=== PATIENT | male | born 1955 | race African-American/Black ===

== ENCOUNTER 2018-11-30 11:41 | Inpatient (IN) ==
[2018-11-30] MEDS ORDERED: SODIUM CHLORIDE 0.9% INJ PRN (12:50)
[2018-11-30] MEDS ORDERED: PHENERGAN IV PRN (12:50)
[2018-11-30] MEDS ORDERED: ZOFRAN IV PRN (12:50)
[2018-11-30] MEDS: DILAUDID IV PRN ×2 (13:56→18:35)
[2018-11-30 15:24] LABS: BASO# 0.02 X1000 (0.0-0.2); BASO% 0.6 % (0.0-0.8); EOS# 0.01 X1000 (0.0-0.7); EOS% 0.3 % (0.0-10.0); HEMATOCRIT 31.1 % (42.0-52.0); HEMOGLOBIN 9.3 g/dL (14.0-18.0); LYMPH# 0.82 X1000 (1.2-3.4); LYMPH% 26.3 % (20.5-51.1); MCH 29.6 PG (27-31); MCHC 29.9 g/dL (33-37); MONO# 0.19 X1000 (0.11-0.59); MONO% 6.1 % (1.7-9.3); MPV 11.8 FL (7.4-10.4); NEUT# 2.08 X1000 (1.4-6.5); NEUT% 66.7 % (42.2-75.2); PLT 125 X1000 (130-400); RBC 3.14 XMIL (4.7-6.1); RDW 21.3 % (11.5-14.5); WBC 3.12 X1000 (4.8-10.8)
[2018-11-30 15:40] LABS: AGAP 10; ALB/GLOB RATIO 0.7; ALBUMIN 2.8 g/dL (3.5-5.0); ALKALINE PHOSPHATASE 119 U/L (32-122); BUN 13 mg/dL (8-22); CALCIUM 8.3 mg/dL (8.8-10.2); CHLORIDE 103 mmol/L (98-107); COSMO 279; CREATININE 0.8 mg/dL (0.7-1.2); ESTIMATED GFR > 60; GLUCOSE 93 mg/dL (70-104); GOT 28 U/L (10-34); GPT 11 U/L (10-44); MAGNESIUM 1.7 mg/dL (1.5-2.7); POTASSIUM 3.8 mmol/L (3.5-5.1); SODIUM 140 mmol/L (136-145); TCO2 27 mmol/L (25-35); TOTAL BILIRUBIN 0.96 mg/dL (0.20-1.00)
[2018-11-30] MEDS: NS 1,000 ML IV SCH (15:45)
[2018-11-30 16:00] LABS: INR 1.18; PROTIME 15.1 Seconds (11.0-16.0)
--- NOTE | 2018-11-30 16:52 | Diag Imaging Result Doc PS360 ---
US ABDOMEN-COMPLETE - 11/30/2018 INDICATION: follow on abdominal cyst for possible drainage COMPARISON: CT from 09/20/2018 FINDINGS: There is a large heterogeneous mass occupying the liver. This is mostly solid, with some cystic components. The cystic component is largely complicated. This cystic area measures approximately 15 x 16 cm. Overall the mass measures 26 x 26 x 20 cm. The right kidney is obscured. The left kidney is normal. The spleen is normal measuring about 8 cm. The gallbladder, pancreas, common bile duct, main portal vein, aorta and IVC are obscured. IMPRESSION: Large hepatic mass with complicated fluid internally. There is no reason to suspect that drainage of the fluid portion will accomplish anything in terms of overall size of the mass. Electronically signed by Christiano Abdi 11/30/2018 4:49 PM
--- NOTE | 2018-11-30 17:32 | HISTORY AND PHYSICAL ---
ONCOLOGIST: Dr. Li. CHIEF COMPLAINT: Intractable nausea, vomiting, and pain. HISTORY OF PRESENT ILLNESS: Mr. 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 He finished his radiation with Dr. Mcdowell 3 weeks ago. He still remains with a large tumor. He does get therapeutic either ultrasound-guided paracentesis or abdominal cyst drainage. He reported to Dr. Li's office for intractable pain, nausea, and vomiting. He is unable to the eat or drink anything without vomitus. He was given IV Phenergan in their office and was sent to be a direct admission. Really no other past medical history aside from nicotine use and hemorrhoids. Currently awaiting diagnostic and laboratory data. We will continue with the pain regimen and antiemetics. PAST MEDICAL HISTORY: 1. Hemorrhoids. 2. GIST status post radiation that he completed 3 weeks ago and p.o. chemotherapy with Sutent, as well as therapeutic drainage. PAST SURGICAL HISTORY: Hemorrhoidectomy. ALLERGIES: No known drug allergies. HOME MEDICATIONS: Being compiled. REVIEW OF SYSTEMS: Patient complains of some abdominal as well as esophageal pain, nausea, vomiting. He has had chills, but unknown fever. No cardiac type chest pain. More uncomfortable breathing secondary to having abdominal fullness, but no shortness of breath per se. LABORATORY AND DIAGNOSTICS: Currently pending. PHYSICAL EXAMINATION: VITAL SIGNS: Temperature is 97.7 degrees, heart rate 95, respirations 16, blood pressure 102/67, O2 is 97% on room air. GENERAL: Mr. Torre is an ill-appearing, 63-year-old male who is lying on his left side, who appears to be in pain but in no acute distress. HEENT: Atraumatic, normocephalic. PERRL. NECK: Supple. Trachea midline. CV: S1, S2 appreciated. No murmurs, gallops, rubs noted. RESPIRATORY: Lung sounds clear bilaterally. Bilaterally decreased in the bases. GI: Distended, tender. Quiet bowel sounds. EXTREMITIES: Three to 4+ pitting edema. Could not assess pedal pulses secondary to the edema. This has had an increase over the last few months. NEUROLOGIC: No focal deficits noted. MUSCULOSKELETAL: Patient was lying in bed. However, he did reposition himself without any problems. ASSESSMENT AND PLAN: 1. Intractable nausea, vomiting, abdominal pain, unable to eat or drink without vomitus. We will continue with antiemetics, IV pain regimen. Will do lower rate IV fluids given that the patient is not able to eat or drink anything. 2. Gastrointestinal stromal tumor. He just finished chemotherapy [address] Mcdowell. He does still have a large tumor and is on p.o. Sutent with Dr. Li. He was a direct admit from their office. He requests a complete ultrasound of the abdomen to see if we need to do a paracentesis or drain an abdominal cyst, so we will keep the patient n.p.o. for now. May have occasional ice chips or mouth swabs. 3. Hemorrhoids. 4. Further recommendation to follow physician evaluation, laboratory and diagnostic data. Dictated by ROWAN Salguero for Abran Baumann MD cc: MD Christian Adler MD [facility]
[2018-11-30] MEDS: DILAUDID IV SCH (22:13)
--- NOTE | 2018-11-30 22:29 | HISTORY AND PHYSICAL ---
ADDENDUM: The patient seen and examined by me [id number]. All the laboratory, vital signs and images were reviewed. The patient basically is a direct admission from Dr. Li due to nausea, vomiting and abdominal pain. He does have a gastrointestinal stromal tumor. He has been on chemotherapy and I believe radiotherapy as well. He has been placed on fluids, pain medication and nausea medication. He seems to be feeling a little bit better, so I will continue with same management. Abdominal ultrasound showed a large hepatic mass with complicated fluid internally, and it looks like he has been draining this hepatic mass/cyst before at [facility]. Probably, we will do it also during this hospitalization. I will wait for more recommendations of Hematology Oncology Department/Dr. Li. cc: Abran Baumann MD
[2018-12-01] MEDS: DILAUDID IV SCH ×4 (00:15→09:22)
[2018-12-01] MEDS: NS 1,000 ML IV SCH (01:50)
[2018-12-01 05:48] LABS: BASO# 0.02 X1000 (0.0-0.2); BASO% 0.7 % (0.0-0.8); EOS# 0.01 X1000 (0.0-0.7); EOS% 0.3 % (0.0-10.0); HEMATOCRIT 30.4 % (42.0-52.0); LYMPH# 0.63 X1000 (1.2-3.4); MCH 29.7 PG (27-31); MCHC 29.6 g/dL (33-37); MCV 100.3 FL (81-99); MONO# 0.15 X1000 (0.11-0.59); MONO% 5.2 % (1.7-9.3); MPV 12.5 FL (7.4-10.4); NEUT# 2.06 X1000 (1.4-6.5); NEUT% 71.8 % (42.2-75.2); PLT 132 X1000 (130-400); RBC 3.03 XMIL (4.7-6.1); RDW 21.3 % (11.5-14.5); WBC 2.87 X1000 (4.8-10.8)
[2018-12-01 05:53] LABS: AGAP 10; ALB/GLOB RATIO 0.6; ALBUMIN 2.7 g/dL (3.5-5.0); ALKALINE PHOSPHATASE 116 U/L (32-122); BUN 14 mg/dL (8-22); CALCIUM 8.8 mg/dL (8.8-10.2); CHLORIDE 104 mmol/L (98-107); COSMO 282; ESTIMATED GFR > 60; GLUCOSE 77 mg/dL (70-104); GOT 27 U/L (10-34); GPT 11 U/L (10-44); MAGNESIUM 1.9 mg/dL (1.5-2.7); POTASSIUM 4.1 mmol/L (3.5-5.1); SODIUM 142 mmol/L (136-145); TCO2 28 mmol/L (25-35); TOTAL BILIRUBIN 1.03 mg/dL (0.20-1.00); TOTAL PROTEIN 7.3 g/dL (6.3-8.3)
--- NOTE | 2018-12-01 11:26 | Diag Imaging Result Doc PS360 ---
EXAM: US ABD PARACENTESIS W S/I 12/01/2018 HISTORY: Mass/cyst aspiration under US TECHNIQUE: Ultrasound-guided cyst aspiration and drainage COMMENT: The risks and benefits of the procedure including the possibility of bleeding, infection, reaction to lidocaine were discussed with patient and he agreed to the procedure. Following sterile preparation the skin anteriorly and administration 1% lidocaine to the skin and deeper soft tissues, a 10.2-Spanish pigtail catheter was inserted into the multilocular cystic lesion in the mid anterior abdomen, and subsequently 3.7 L of grossly sanguinous serous fluid was drained. There are no immediate complications. IMPRESSION: Successful cyst drainage. Electronically signed by Da Castro 12/01/2018 11:23 AM
--- NOTE | 2018-12-01 12:47 | PROGRESS NOTE ---
DATE: 12/01/2018 SUBJECTIVE: This patient's pain seems to be better. He has been n.p.o. because he just had a procedure done, an ultrasound-guided cyst aspiration with drainage, and 3.7 L of grossly serosanguineous fluid was drained with no immediate complications. He has been evaluated by Hematology/Oncology Department. He has been placed on a diet. OBJECTIVE: Vital Signs: Temperature 98.3 degrees, pulse 102 respiratory rate 12, blood pressure 118/93, oxygen saturation 98 on room air. HEENT: Head normocephalic, no trauma. PERRLA. Neck: Supple. No JVD. No masses. Central trachea. Chest: Clear to auscultation. Some crepitus at the bases. Abdomen: Soft. Tenderness to palpation at the level of the superior part of the abdomen, mostly right upper quadrant. It looks like he has a protuberant abdomen, but mostly the lower part, without signs of ascites. It is really hard to palpation and painful. Extremities: No edema, no clubbing, no cyanosis. Decreased muscle mass. Neurological examination: The patient is alert, he is oriented. No deficits. LABORATORY: WBC 2.8, hemoglobin 9, hematocrit 30.4, platelets 132. Sodium 142, potassium 4.1, chloride 104, bicarbonate 28. BUN 14, creatinine 1, glucose 77, calcium 8.8, magnesium 1.9, albumin 2.7. ASSESSMENT AND PLAN: 1. Intractable nausea, vomiting, and abdominal pain. This seems to be getting better. Continue with pain medication through his intravenous line. Hopefully, we are going to start putting him on long-acting pain medication through his mouth and also as needed. Hematology/Oncology Department on board. He has been placed on a diet. 2. Gastrointestinal stromal tumor. Aware. Continue with the same management. Hematology/Oncology Department and Radiology Department on board. 3. Liver mass/cyst, status post drainage, 3.7 liters of serosanguineous fluid has been collected. No immediate complications. 4. Hemorrhoids. Aware. cc: Abran Baumann MD
[2018-12-01] MEDS ORDERED: NORCO-10 PO PRN (13:26)
[2018-12-01] MEDS ORDERED: DILAUDID IV PRN (13:27)
[2018-12-01] MEDS ORDERED: DURAGESIC 50 MICROGM/HR PATCH TD SCH (13:30)
[2018-12-01 16:40] VITALS: BP 92/77
--- NOTE | 2018-12-01 20:25 | DISCHARGE SUMMARY ---
ADMISSION DATE: 11/30/2018 DISCHARGE DATE: 12/01/2018 DISCHARGE DIAGNOSES: 1. Intractable nausea, vomiting, and abdominal pain. 2. Gastrointestinal stromal tumor. 3. Liver mass/cyst, status post drainage of 3.7 liters of serosanguineous fluid. 4. Hemorrhoids. PROCEDURES PERFORMED: 1. Abdominal ultrasound dated 11/30/2018, impression - large hepatic mass with complicated fluid internally. 2. Ultrasound guided cyst aspiration and drainage dated 12/01/2018. Impression - successful cyst drainage of 3.7 liters of grossly serosanguineous fluid. HOSPITAL COURSE: A 63-year-old male with a past medical history of gastrointestinal stromal tumor, using oral chemotherapy with Sutent, and apparently he finished his radiation with Dr. Mcdowell three weeks ago. He still remains with a large tumor. He does get therapeutic ultrasound guided abdominal cyst drainage at [facility]. He reported to Dr. Li's office for intractable pain, nausea, and vomiting. He was unable to drink or eat anything without having nausea or vomiting. He was given IV Phenergan in their office and was sent to be a direct admission. Other medical history is nicotine use and hemorrhoids. An ultrasound guided cyst aspiration and drainage was done on 12/01/2018 and 3.7 liters of grossly serosanguineous fluid was removed. This patient was getting better and he was able to tolerate p.o. and the pain was controlled. He was evaluated by Hematology/Oncology Department and it was decided to send this patient home, given his current condition. On the morning of discharge, this patient was in stable medical condition, tolerating p.o. and ambulating. He was complaining of mild pain. LABORATORY DATA: Showed a WBC of 3.1, hemoglobin 9.3, platelet count 125,000. CMP was grossly unremarkable. WBC 2.9, hemoglobin 9, hematocrit 30.5, platelet count 132,000. Sodium 142, potassium 4.1, chloride 104, bicarbonate 28, BUN 14, creatinine 1, glucose 77, calcium 8.8, AST 27, ALT 11, alkaline phosphate 116. PHYSICAL EXAMINATION: Vital Signs: Temperature 97.6, pulse 103, respiratory rate 13, blood pressure 118/91, oxygen saturation 99 on room air. HEENT: Head normocephalic. No trauma. PERRLA. Neck: Supple. No JVD. No masses. Central trachea. Chest: Clear to auscultation. Some crepitus at the bases. Abdomen: Soft. Tenderness to palpation at the level of the superior part of the abdomen, protuberant and painful to palpation. Extremities: Edema. No clubbing or cyanosis. Decreased muscle mass. Neurological: The patient is alert. He is oriented. No deficits. DISCHARGE MEDICATIONS: 1. Fentanyl patch 50 mcg q three days. 2. Hydrocodone/acetaminophen 10/325 mg q four to six hours as needed. 3. Sunitinib malate one tablet p.o. daily, 50 mg capsule. FOLLOWUP: Follow up with Dr. Li in one week. cc: Abran Baumann MD
== END 2018-12-01 17:07 | disposition home health service (06) | DRG 442 ==
LOC: DIRADM 11:41 → SUATTDRO 11:41 → 1N 13:04
PROVIDERS: ADMIT Internal Medicine; ATTEND Internal Medicine

== ENCOUNTER 2018-12-15 15:01 | Inpatient (IN) ==
[2018-12-15] MEDS ORDERED: ZOFRAN IV PRN (16:45)
[2018-12-15 17:34] LABS: EOS# 0.01 X1000 (0.0-0.7); EOS% 0.2 % (0.0-10.0); HEMATOCRIT 20.2 % (42.0-52.0); IMM GRAN# 0.02 X1000 (0.0-0.04); IMM GRAN% 0.5 % (0.0-0.5); LYMPH# 0.62 X1000 (1.2-3.4); LYMPH% 14.5 % (20.5-51.1); MCH 30.9 PG (27-31); MCHC 29.7 g/dL (33-37); MCV 104.1 FL (81-99); MONO% 4.7 % (1.7-9.3); MPV 11.9 FL (7.4-10.4); NEUT# 3.44 X1000 (1.4-6.5); NEUT% 80.1 % (42.2-75.2); PLT 116 X1000 (130-400); RBC 1.94 XMIL (4.7-6.1); RDW 21.3 % (11.5-14.5); WBC 4.29 X1000 (4.8-10.8)
[2018-12-15 17:55] LABS: AGAP 11; ALB/GLOB RATIO 0.5; ALKALINE PHOSPHATASE 134 U/L (32-122); BUN 16 mg/dL (8-22); CALCIUM 7.9 mg/dL (8.8-10.2); CHLORIDE 101 mmol/L (98-107); COSMO 276; CREATININE 0.6 mg/dL (0.7-1.2); ESTIMATED GFR > 60; GLUCOSE 78 mg/dL (70-104); GOT 32 U/L (10-34); GPT 18 U/L (10-44); MAGNESIUM 1.6 mg/dL (1.5-2.7); POTASSIUM 4.1 mmol/L (3.5-5.1); SODIUM 138 mmol/L (136-145); TCO2 26 mmol/L (25-35); TOTAL BILIRUBIN 0.71 mg/dL (0.20-1.00); TOTAL PROTEIN 5.8 g/dL (6.3-8.3)
[2018-12-15] MEDS ORDERED: NS 250 ML ONE (18:02)
[2018-12-15 18:06] LABS: BANDS 11 % (0-1); LARGE PLATELETS OCCASIONAL; LYMPHS 13 % (21-51); MONO 2 % (1-9); NRBC 3 % (0-0); SEGS 74 % (42-75)
[2018-12-15 18:07] LABS: ANISOCYTOSIS 2+
[2018-12-15 18:43] LABS: INR 1.16
[2018-12-15] MEDS: DILAUDID IV PRN ×2 (18:43→22:14)
--- NOTE | 2018-12-15 19:56 | HISTORY AND PHYSICAL ---
ADDENDUM: Patient seen and examined by me [id number]. All the laboratory and vital signs were reviewed. He had lab work today as an outpatient that showed a hemoglobin of 5.8. He has been complaining of abdominal pain because he has a history of gastrointestinal stromal tumor. He has been discharged on 12/01/2018 due to intractable nausea, vomiting, and also abdominal pain. He has a liver mass/cyst that was drained at that time, and 3.7 L of serosanguineous fluid was removed. He also has a history of hemorrhoids. As per the patient, he has not been seeing any active rectal bleeding. He sees a small bleed when he cleans himself after having a bowel movement. He does not notice any blood in the toilet or mixed with stools. Also, he has been complaining of abdominal pain and we will treat that. He is not having nausea and vomiting at this moment. We are going to get a new lab work done today and we will monitor that. He will receive 2 units of PRBCs and Gastroenterology Department will be consulted as well as Hematology/Oncology Department. It looks like his gastrointestinal stromal tumor is advanced with liver metastasis. Will monitor. I agree with the rest of the nurse practitioner's assessment and plan. cc: Abran Baumann MD
[2018-12-15] MEDS: NORCO-7.5 PO PRN (21:02)
--- NOTE | 2018-12-15 21:21 | HISTORY AND PHYSICAL ---
PRIMARY CARE PROVIDER: Dr. Holly. CHIEF COMPLAINT: Direct admission for intractable pain. HISTORY OF PRESENT ILLNESS: Mr. Torre is a 63-year-old male who carries a past medical history of a gastrointestinal stromal tumor. Was using oral chemotherapy with Sutent and had finished radiation with Dr. Mcdowell several weeks ago. Most recently admitted to our service on 11/30/2018, and underwent an ultrasound-guided cyst aspiration and drainage on 12/01/2018, where they were able to drain 3.7 L of grossly serosanguineous fluid. He presented back to Dr. Li's office today without having an appointment, complaining of intractable pain as well as some rectal bleeding. They checked his hemoglobin and hematocrit and they were 5 and 19. He was given IV Dilaudid in the office after talking with Lupe Rodney, Dr. Li's [employer] UNIT OPERATOR. He is probably in the end stages of his disease. Will admit him, start him on IV and p.o. pain medication, as well as transfuse him with 2 units of blood and consult GI. Could possibly be pressure on his hemorrhoids. He denies any bloody BMs. However, he does state that when he wipes, he will have blood related to his hemorrhoids, especially after he sat to have a BM for quite some time, so we will also initiate him on MiraLAX b.i.d. if he can tolerate. PAST MEDICAL HISTORY: 1. A gastrointestinal stromal tumor, status post chemotherapy and radiation, as well as therapeutic drainage of his cyst. 2. Hemorrhoids. PAST SURGICAL HISTORY: Hemorrhoidectomy. ALLERGIES: No known drug allergies. MEDICATIONS: Home medications are being compiled. REVIEW OF SYSTEMS: A 12 point review of systems is completely negative except for those mentioned in HPI. LABORATORY AND DIAGNOSTICS: Currently pending. PHYSICAL EXAMINATION: VITAL SIGNS: Pending. GENERAL: Mr. Torre is an ill-appearing, 63-year-old male who appears weak, but in no acute distress. HEENT: Atraumatic, normocephalic. PERRL. NECK: Supple. Trachea midline. CARDIOVASCULAR: S1, S2 appreciated. No murmurs, gallops, rubs noted. RESPIRATORY: Lung sounds clear bilaterally, decreased in the bases. GI: Distended, mildly tender. Positive bowel sounds 4 quadrants. EXTREMITIES: 4+ pitting edema. Could not assess pedal pulses secondary to the edema. It tends to go up into the belly. NEUROLOGIC: No focal deficits noted. ASSESSMENT AND PLAN: 1. Intractable pain in the abdomen. We will continue with intravenous Dilaudid and oral [place]. 2. Rectal bleeding, possibly hemorrhoidal; however, he has had a bigger dip in his hemoglobin and hematocrit. He is 5 and 19. We will transfuse him with 2 units of packed red blood cells, consult GI, and start him on MiraLAX twice daily as tolerated. 3. Gastrointestinal stromal tumor, followed by Dr. Li. 4. Liver mass/cyst, status post drainage on 12/01/2018, where they removed 3.7 L of serosanguineous fluid. 5. Hemorrhoids, status post hemorrhoidectomy. The patient continues to have issues with his hemorrhoids. Again, we are going to get GI on board. 6. Further recommendations to follow physician evaluation, laboratory and diagnostic data. Dictated by ROWAN Salguero for Abran Baumann MD cc: MD Dr. Jen Adler Dr.
[2018-12-16] MEDS: DILAUDID IV PRN ×6 (04:45→22:06)
[2018-12-16 07:24] LABS: BASO# 0.01 X1000 (0.0-0.2); BASO% 0.2 % (0.0-0.8); HEMATOCRIT 25.8 % (42.0-52.0); HEMOGLOBIN 8.4 g/dL (14.0-18.0); IMM GRAN# 0.03 X1000 (0.0-0.04); IMM GRAN% 0.7 % (0.0-0.5); LYMPH# 0.66 X1000 (1.2-3.4); MCH 31.5 PG (27-31); MCHC 32.6 g/dL (33-37); MCV 96.6 FL (81-99); MONO# 0.32 X1000 (0.11-0.59); MONO% 7.3 % (1.7-9.3); NEUT# 3.39 X1000 (1.4-6.5); NEUT% 76.8 % (42.2-75.2); PLT 98 X1000 (130-400); RBC 2.67 XMIL (4.7-6.1); RDW 20.3 % (11.5-14.5); WBC 4.41 X1000 (4.8-10.8)
[2018-12-16 07:45] LABS: AGAP 11; ALB/GLOB RATIO 0.6; ALBUMIN 1.7 g/dL (3.5-5.0); ALKALINE PHOSPHATASE 117 U/L (32-122); BUN 15 mg/dL (8-22); CALCIUM 7.3 mg/dL (8.8-10.2); CHLORIDE 100 mmol/L (98-107); COSMO 268; CREATININE 0.5 mg/dL (0.7-1.2); ESTIMATED GFR > 60; GLUCOSE 71 mg/dL (70-104); GOT 25 U/L (10-34); GPT 15 U/L (10-44); POTASSIUM 4.2 mmol/L (3.5-5.1); SODIUM 134 mmol/L (136-145); TCO2 23 mmol/L (25-35); TOTAL BILIRUBIN 1.03 mg/dL (0.20-1.00); TOTAL PROTEIN 4.7 g/dL (6.3-8.3)
[2018-12-16 07:54] LABS: ANISOCYTOSIS 2+; BANDS 2 % (0-1); HYPOCHROM 1+; LYMPHS 7 % (21-51); MONO 6 % (1-9); NRBC 6 % (0-0); POLYCHROM 2+; SEGS 85 % (42-75)
[2018-12-16] MEDS ORDERED: DILAUDID IV ONE (09:40)
[2018-12-16 10:58] LABS: IRON SATURATION 56 %; TIBC 107 ug/dL; TOTAL IRON 60 ug/dL (53-167); UNBOUND IRON 47 ug/dL (112-346)
--- NOTE | 2018-12-16 11:21 | PROGRESS NOTE ---
DATE: 12/16/2018 SUBJECTIVE: At this moment, this patient is complaining of left upper quadrant pain, abdominal pain. He has been getting treatment for these. He received 2 units of PRBCs and the hemoglobin improved from 6 to 8.4. Gastroenterology Department, as well as Hematology/Oncology Department, has been consulted. Apparently this patient was scheduled to get a Port-A-Cath placed today, so Surgery Department has been consulted to see if there is a possibility of placing this during this hospitalization. OBJECTIVE: Vital Signs: Temperature 98.6 degrees, pulse 97, respiratory rate 16, blood pressure 115/80, oxygen saturation 98 on room air. HEENT: Head normocephalic, no trauma. PERRLA. Neck: Supple. No JVD. No masses. Central trachea. Chest: Clear to auscultation, decreased at the bases with some crepitus at the bases as well. Abdomen: Distended to palpation at the level of the left upper quadrant. No signs of peritoneal irritation. I cannot feel some masses. Extremities: 3+ lower extremity edema. No clubbing. No cyanosis up to the abdomen. Neurological examination: This patient is alert and oriented x3. No focal deficits. He is complaining of generalized pain. LABORATORY: WBC 4.4, hemoglobin 8.4, hematocrit 25.8, platelets 98. Sodium 134, potassium 4.2, chloride 100, bicarbonate 23. BUN 15, creatinine 0.5, glucose 71, calcium 7.3, albumin 1.7. ASSESSMENT AND PLAN: 1. Severe anemia, status post 2 packed red blood cells, hemoglobin improved from 6 to 8.4. For now, we will continue to monitor. This patient has been complaining of some rectal bleeding, but likely related to hemorrhoids. Gastroenterology Department has been consulted. 2. Intractable abdominal pain. At this moment he is in pain. He has been getting pain medication. Will continue with same management for now. 3. Gastrointestinal stromal tumor followed by Dr. iL, which has been consulted. 4. Liver mass/cyst, status post drainage on 12/01/2018 where 3.7 liters of fluid have been removed. 5. Hemorrhoids, status post hemorrhoidectomy. Patient is DNR, Advanced care planning with the patient 15 minutes cc: Abran Baumann MD [facility]ITAL[facility]
--- NOTE | 2018-12-16 11:52 | Diag Imaging Result Doc PS360 ---
US GB < RUQ (LIMITED) - 12/16/2018 INDICATION: Drainage of lg abdominal cyst TECHNIQUE: COMPARISON: 12/07/2018 FINDINGS: Repeat ultrasound of the large mass in the epigastrium was performed. This mass is mostly air-filled. There are only some trace tiny pockets of fluid. IMPRESSION: Large mass in the upper abdomen that is partially fluid-filled, but mostly air-filled. Electronically signed by Christiano Abdi 12/16/2018 11:50 AM
--- NOTE | 2018-12-16 13:58 | GENERAL SURGERY PROGRESS NOTE ---
DATE: 12/16/2018 SUBJECTIVE: The patient is known to me from previous GIST tumor. He had come to my office recently and we had scheduled him for insertion of a port catheter for palliative chemotherapy. He has been not responding as well to the Sutent. He had a blood transfusion a couple of weeks ago due to significant anemia. However, yesterday at Dr. Li's office, he again was found to be quite anemic and was admitted directly. The patient says he has dark bloody bowel movements frequently. OBJECTIVE: He is afebrile, pulse 97, respirations 16, blood pressure 115/80 this morning.General: Awake, alert, no acute distress. Gastrointestinal: Soft, nondistended. He is firm in the upper abdomen. No significant tenderness. Rectal Examination: He does have external and internal hemorrhoids but there is no active bleeding. LABORATORY: Hemoglobin 6, hematocrit 28 yesterday, hemoglobin 8.4, hematocrit 25.8 today. Electrolytes were reviewed and unremarkable. ASSESSMENT AND PLAN: A 63-year-old male with metastatic GIST of the stomach. He is having significant anemia. We will recheck his hemoglobin and hematocrit tomorrow. If stable, we will plan to proceed with placement of a port tomorrow. Dr. Aguilar has also been consulted. cc: Teofiol Jackson MD
[2018-12-16] MEDS: NORCO-7.5 PO PRN (14:53)
--- NOTE | 2018-12-16 19:31 | HEMO/ONC CONSULTATION ---
DATE: 12/15/2018 ADMITTING PHYSICIAN: Abran Baumann MD REQUESTING PHYSICIAN: Abran Baumann MD. We appreciate this consult. CHIEF COMPLAINT: Gastrointestinal stromal tumor. HISTORY OF PRESENT ILLNESS: Mr. Alan Torre is a 63-year-old, male well known to Dr. Li with a history of gastrointestinal stromal tumor with liver and lymph node involvement and large cystic mass as well as hepatic metastases that have increased in size recently. The patient has been on Sutent but has been unable to tolerate treatment. Additionally he was treated with radiation therapy by Dr. Mcdowell. He is undergoing routine drainage of cystic mass approximately every [address] Todd Coates of [facility]. The patient presented to [facility] with reports of uncontrolled pain, inability to keep anything down by mouth and significant swelling to the waist. The patient was evaluated. Hemoglobin was found to be 6.7. It was decided at that time that the patient would be admitted to [facility] hospitalist service for IV fluids and IV pain control as well as transfusion of packed red blood cells. PAST MEDICAL HISTORY: 1. Gastrointestinal stromal tumor. 2. Hemorrhoids. PAST SURGICAL HISTORY: Hemorrhoidectomy. SOCIAL HISTORY: The patient does not use tobacco, alcohol or illicit drugs. FAMILY HISTORY: Negative for hematologic or oncologic disease. MEDICATIONS ON ADMISSION: 1. Urea topical cream. 2. Fentanyl transdermal patch. 3. Lasix. 4. Kunkle. 5. Sutent. ALLERGIES: Phospha Neutral. REVIEW OF SYSTEMS: A 14-point review of systems was obtained and is negative except for mentioned in HPI. PHYSICAL EXAMINATION: General: Mr. Torre is a 63-year-old, male, lying supine in bed in no immediate distress. Vital Signs: Temperature 98.6, blood pressure 115/80, heart rate 97, respirations 16, O2 saturation is 100% on room air. HEENT: Normocephalic, atraumatic. Mucous membranes are pale and moist. Sclerae are anicteric. Extraocular movements intact. Neck: Supple. Lungs: Clear to auscultation bilaterally. Chest expansion is equal bilaterally. Cardiovascular: S1, S2 is heard. No murmurs, rubs or gallops. Abdomen: Distended with positive ascites. Lower extremities: Without clubbing or cyanosis. The patient continues to have 2+ bilateral lower extremity edema. Dermatologic: No rashes, bruises or lesions. Neurologic: The patient is awake, alert, oriented x3. Has no focal deficits. LABORATORY DATA: Hemoglobin is 8.4, hematocrit 25.8, white blood cell count 4.41, platelets 98,000, sodium 134, potassium 4.2, chloride 100, CO2 23, BUN 15, creatinine 0.5 and is glucose 71. O2 saturation is 56%, bilirubin 1.03, AST 25, ALT 15 and alkaline phosphatase is 117. ASSESSMENT AND PLAN: 1. Gastrointestinal stromal tumor with liver and lymph node involvement and large cystic mass as well as hepatic metastases that have recently increased in size. The patient was maintained on Sutent, which he was unable to keep down for several weeks. He completed radiation therapy with Dr. Mcdowell approximately 1 month prior. He undergoes repeated drainage of cystic mass at [facility] with Dr. Coates. Last drainage was 2 weeks ago. We will obtain an ultrasound with possible drainage of cystic mass at this time. 2. Intractable pain secondary to #1. The patient will continue IV Dilaudid and [place] as prescribed. 3. Rectal bleeding, questionably hemorrhoidal. GI will be consulted. 4. Anemia with a hemoglobin of 5.7. The patient is status post 2 units packed red blood cell transfusion. We will continue to monitor and transfuse as necessary. 5. We will follow along and make further recommendations pending outcomes. The above reflects the history, exam, assessment and plan of Dr. Borrero. Dictated by ROWAN Riley for Antoinette Borrero MD cc: ROWAN Riley MD I have seen and examined the patient and the above note reflects my history, physical exam, assessment and plan. Antoinette FRANKLIN
--- NOTE | 2018-12-16 20:17 | GASTROENTEROLOGY CONSULTATION ---
DATE: 12/16/2018 HISTORY OF PRESENT ILLNESS: Mr. 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 He is known to me from my office practice. The patient recently had an EGD which showed a rather large mass in the stomach involving almost the entire lumen of the stomach. He has been under treatment by Dr. Li for his GIST. Unfortunately, he has not done well. He was admitted to hospital with anemia. He tells me that he has had trouble eating. He has not been able to keep much down. He can only eat small quantity; however, he has been able to drink Ensure, but he has been having severe indigestion and reflux as well as burping foul-smelling air. He denies any dysphagia or odynophagia but denies any hematemesis. He has had multiple loose bowel movements and has had some dark stool. On exam, he was found to be severely anemic and he was sent to the hospital for further evaluation and treatment. PAST MEDICAL HISTORY: Positive significant for GIST tumor. Currently he is on chemotherapy and radiation therapy. History of hemorrhoid surgery and has had hemorrhoidectomy. MEDICATIONS: Prior to his hospitalization, he has been on Duragesic patch, furosemide, hydrocodone, omeprazole and Sunitinib Malate that is Sutent. ALLERGIES: Claims to be allergic to potassium chloride. SOCIAL HISTORY: He is , lives with his . Does not smoke. Does not drink. Does not do illicit drugs. FAMILY HISTORY: Noncontributory. REVIEW OF SYSTEMS: As per HPI as above. PHYSICAL EXAMINATION: General: On examination, a very pleasant male. He is thin built, almost cachectic. He is sitting in the bed. During my conversation and history with him he was having some eructations. Vital signs: Temperature 98.1 degrees, pulse is 108 per minute, breathing 18, blood pressure 108/85. HEENT: Head is atraumatic, normocephalic. Eyes: Conjunctivae is pale. Sclerae anicteric. Mouth buccal mucosa is moist. Throat is normal. Neck: Neck is supple. No lymphadenopathy or thyromegaly. Chest: Clear to auscultate. Heart: Audible. No murmur. Abdomen: Is distended. Has got the large hard firm mass involving almost the entire abdomen, predominantly in the right upper quadrant area. It is nontender. Bowel sounds are audible. No pedal edema noted. LABORATORIES: Reviewed which showed WBC 4.29, hemoglobin was 6 on admission which is up to 8.4 today. On admission, hematocrit was 20.2, today it is 25.8, MCV 96.6. Platelets were 98,000. On admission it was 116,000. PT 15, INR 1.16. Sodium 134, potassium 4.2, chloride 100, bicarb is 23. BUN is 15. Creatinine 0.5. AST 25, ALT 15. Alkaline phosphatase 117. IMAGING: Ultrasound of the abdomen showed a large mass in the upper abdomen. IMPRESSION: This is a 63-year-old, unfortunate gentleman who has a rather large gastrointestinal stromal tumor involving his stomach and during my esophagogastroduodenoscopy a few weeks ago the mass was completely obscuring the stomach. His anemia could be related to the bleeding from this gastrointestinal stromal tumor mass or from his treatment as well. At this point, unfortunately not much could be done from a gastrointestinal perspective to help his reflux symptoms as well as bleeding from the mass which was oozing basically. I would recommend supportive care, comfort measures and symptomatic treatment. Again from Gastroenterology, I will not be able to provide any therapeutic measures to stop the bleeding or resolved his gastrointestinal symptoms. I have explained the findings to the patient and explained to him while he had his friend visiting him. I answered all his pertinent questions. The case was also discussed with Dr. Hamm. cc: Holden Aguilar MD
[2018-12-17] MEDS: DILAUDID IV PRN ×6 (01:29→21:30)
[2018-12-17 07:14] LABS: HEMATOCRIT 29.2 % (42.0-52.0)
[2018-12-17] MEDS ORDERED: NS 250 ML ONE (08:46)
[2018-12-17] MEDS ORDERED: SENSORCAINE 0.5%-EPI 1:200,000 ONE (08:46)
[2018-12-17] MEDS ORDERED: XYLOCAINE-MPF 2% ONE ×2 (08:50→08:56)
[2018-12-17] MEDS ORDERED: ROBINUL ONE (08:50)
[2018-12-17] MEDS ORDERED: DIPRIVAN 1% ONE ×2 (08:50→08:56)
[2018-12-17] MEDS ORDERED: KEFZOL 1 GM/D5W 1 GM/50 ML IVPB ONE (09:01)
[2018-12-17] MEDS ORDERED: ZOFRAN ONE (09:27)
[2018-12-17] MEDS ORDERED: KEFZOL 1 GM/D5W 1 GM/50 ML IVPB IV ONE (10:00)
--- NOTE | 2018-12-17 10:24 | OPERATIVE NOTE ---
PROCEDURE DATE: 12/17/2018 PREOPERATIVE DIAGNOSES: 1. Gastrointestinal stroma tumor. 2. Anemia. POSTOPERATIVE DIAGNOSES: 1. Gastrointestinal stroma tumor. 2. Anemia. PROCEDURE: Insertion of port catheter with fluoroscopic and ultrasound guidance. SURGEON: Teofilo Jackson MD. ANESTHESIA: General. ESTIMATED BLOOD LOSS: 10 mL. COMPLICATIONS: None apparent. SPECIMENS: None. FINDINGS: The right internal jugular vein was visualized with ultrasound. It was compressible, patent without thrombus. Fluoroscopy revealed proper placement of the wire followed by the catheter to the superior vena cava right atrial junction. TECHNIQUE: The patient was brought to the operating room and placed supine on the table. General anesthesia was induced. He was prepped and draped in usual sterile fashion. The right internal jugular vein was found with ultrasound. The skin over the vein was anesthetized with 0.25% Marcaine with epinephrine. A small incision was made with an 11 blade in the neck. The vein was then accessed under ultrasound guidance with the needle and syringe. The wire passed through the needle. The needle was removed. The wire was fixed to the drape. I then made a counter incision below the right clavicle after anesthetizing the skin again with Marcaine. A pocket was created below the skin and superficial fat with blunt finger dissection and cautery. I then tunneled the catheter subcutaneously from the lower incision out through the neck incision. The sheath and dilator were passed over the wire. The wire and dilator were removed. The catheter was passed into the sheath. The sheath was removed. The tip of the catheter was positioned correctly with fluoroscopy. The catheter was cut to size and fixed to the port. The port was then anchored to the fascia with 2-0 Surgipro at 2 o'clock, 6 o'clock, and 10 o'clock. The port was accessed. It silke back blood easily. It was flushed with heparin saline. The incisions were closed with interrupted subcutaneous 3-0 Polysorb and a running 4-0 subcuticular Biosyn and Steri-Strips. There were no apparent complications. He was awakened in stable condition and transferred to the recovery room. cc: Teofilo Jackson MD
--- NOTE | 2018-12-17 10:49 | Diag Imaging Result Doc PS360 ---
EXAM: CHEST-PORTABLE 12/17/2018 HISTORY: s/p port placement TECHNIQUE: AP portable at 1034 COMMENT: There is a Port-A-Cath on the right with its tip in the right atrium. There is no evidence of pneumothorax. The inspiration is less optimal than on 04/26/2018 and there is an apparent pleural effusion on the left. There is some opacity in the left lower lobe suggesting atelectasis versus pneumonia. IMPRESSION: Left lower lobe atelectasis and left pleural effusion. Electronically signed by Da Castro 12/17/2018 10:46 AM
--- NOTE | 2018-12-17 11:15 | PROGRESS NOTE ---
DATE: 12/17/2018 SUBJECTIVE: No acute events overnight. Hemoglobin improved a little bit compared with yesterday from 8.4 to 9. He is getting today a Port-A-Cath. We will continue with same management. Hopefully, we are going to be able to discharge this patient in the next 24 hours. OBJECTIVE: Vital Signs: Temperature 97.6 degrees, pulse 107, respiratory rate 10, blood pressure 112/89, and oxygen saturation 100% on room air. HEENT: Head normocephalic. No trauma. PERRLA. Neck: Supple. No JVD. No masses. Central trachea. Chest: Clear to auscultation and decreased at the bases with some crepitus at the bases as well. Abdomen: Abdomen is distended to palpation at the level of the upper abdomen with some generalized tenderness. No signs of peritoneal irritation. I can feel some masses around his epigastric and upper abdomen basically. Extremities: 3+ lower extremity edema. No clubbing. No cyanosis. Neurological: The patient is alert and oriented x3. No focal deficits. LABORATORY: Hemoglobin 9 and hematocrit 29.2. ASSESSMENT AND PLAN: 1. Severe anemia status post 2 PRBC's. Hemoglobin and hematocrit improved from 6 to 8.4. Today is 9. We will continue with the same management. Gastroenterology Department evaluated this patient. No procedures for now. 2. Intractable abdominal pain. Continue with the same management. 3. Gastrointestinal stromal tumor followed by Dr. Li, which has been consulted. Today this patient is getting a Port-A-Cath. 4. Liver mass/cyst status post drainage in 12/01/2018 where 3.7 L of fluid has been removed. 5. Hemorrhoids status post hemorrhoidectomy. Aware. cc: Abran Baumann MD
--- NOTE | 2018-12-17 13:47 | GASTROENTEROLOGY PROGRESS NOTE ---
DATE: 12/17/2018 SUBJECTIVE: Patient is awake and alert. No acute complaints. His is at the bedside. Patient has had a Port-A-Cath placed for new chemo therapy. OBJECTIVE: Vital Signs: Temperature 99.3 degrees, pulse 103, blood pressure 118/82. LABORATORY: Hematology: WBC 4.41, hemoglobin 9.0, hematocrit 29.2, MCV 96.6, platelets 98,000. Chemistry: Sodium 134, potassium 4.2, chloride 100, CO2 of 23, BUN 15, creatinine 0.5, glucose 71, calcium 7.3. ASSESSMENT AND PLAN: 1. Anemia. Patient has receive packed red blood cells. 2. History of gastrointestinal stromal tumor. Followed by Dr. Li. Patient has had a Port-A- Cath placement in preparation for new chemotherapy. 3. Liver mass/cyst which he receives drainage frequently. 4. Unfortunately, no treatment available per GI. I have placed his last EGD from March 2017 on his chart. GI will be available as needed. Please re-consult us as needed. I have discussed this case with Dr. Aguilar. Dictated by ROWAN Melendez for Holden Aguilar MD cc: ROWAN Reynoso MD
[2018-12-18] MEDS: DILAUDID IV PRN ×3 (00:46→06:51)
[2018-12-18 07:47] LABS: EOS# 0.01 X1000 (0.0-0.7); EOS% 0.2 % (0.0-10.0); HEMATOCRIT 26.2 % (42.0-52.0); IMM GRAN# 0.02 X1000 (0.0-0.04); IMM GRAN% 0.4 % (0.0-0.5); LYMPH# 0.59 X1000 (1.2-3.4); MCH 30.5 PG (27-31); MCHC 30.5 g/dL (33-37); MONO# 0.21 X1000 (0.11-0.59); MONO% 4.6 % (1.7-9.3); MPV 11.9 FL (7.4-10.4); NEUT# 3.71 X1000 (1.4-6.5); NEUT% 81.8 % (42.2-75.2); PLT 112 X1000 (130-400); RBC 2.62 XMIL (4.7-6.1); RDW 19.5 % (11.5-14.5); WBC 4.54 X1000 (4.8-10.8)
[2018-12-18 08:00] LABS: AGAP 6; BUN 10 mg/dL (8-22); CALCIUM 7.9 mg/dL (8.8-10.2); CHLORIDE 100 mmol/L (98-107); COSMO 266; CREATININE 0.6 mg/dL (0.7-1.2); ESTIMATED GFR > 60; GLUCOSE 71 mg/dL (70-104); POTASSIUM 3.9 mmol/L (3.5-5.1); SODIUM 134 mmol/L (136-145); TCO2 28 mmol/L (25-35)
[2018-12-18] MEDS ORDERED: LASIX IV ONE (10:18)
--- NOTE | 2018-12-18 14:56 | GENERAL SURGERY PROGRESS NOTE ---
DATE: 12/18/2018 He has had no problems with his port postoperatively. cc: Joshua Rosas MD
--- NOTE | 2018-12-18 15:09 | PROGRESS NOTE ---
DATE: 12/18/2018 SUBJECTIVE: No acute events overnight. Today this patient is complaining of diarrhea, black stools. He had a Port-A-Cath placed yesterday. Also he is complaining of bilateral lower extremity swelling with abdominal pain. OBJECTIVE: Vital Signs: Temperature 98.1 degrees, pulse 99, respiratory rate 20, blood pressure 94/64, oxygen saturation 99 on room air. HEENT: Head normocephalic, no trauma. PERRLA. Neck: Supple. No JVD. No masses. Central trachea. Chest: Clear to auscultation, decreased at the bases with some crepitus. Abdomen: Soft. He had some distention, protuberant abdomen with generalized tenderness to palpation and masses all in the upper part of the abdomen. No signs of peritoneal irritation. Extremities: 3+ lower extremity edema. No clubbing. No cyanosis. Neurological: The patient is alert. He is oriented x3. No focal deficits. LABORATORY: WBC 4.5, hemoglobin 8, hematocrit 26.2, platelet 112. Sodium 134, potassium 2.9, chloride 100, bicarbonate 28. BUN 10, creatinine 0.6, glucose 71, calcium 7.9. ASSESSMENT AND PLAN: 1. Severe anemia status post 2 packed red blood cells. Hemoglobin and hematocrit improved from 6 to 8.4, today is 8. He is complaining of diarrhea and black stools. Gastroenterology Department evaluated this patient already, but unfortunately there is no treatment available per Gastroenterology due to his advanced disease/mass. 2. Intractable abdominal pain. His pain is better controlled. We will continue with same management. 3. Gastrointestinal stromal tumor followed by Dr. Li. Will continue with same management. We did an ultrasound of the abdomen that showed a large mass in the upper abdomen that is partially fluid-filled, but mostly air-filled. I am not quite sure if this will be drained. I will wait for Hematology/Oncology recommendations. 4. Liver mass/cyst status post drainage on 12/01/2018 where 3.7 liters of fluid was removed. 5. Hemorrhoids, status post hemorrhoidectomy. Aware. cc: Abran Baumann MD
[2018-12-19] MEDS ORDERED: LASIX IV ONE (10:35)
--- NOTE | 2018-12-19 11:17 | PROGRESS NOTE ---
DATE: 12/19/2018 SUBJECTIVE: No acute events overnight. He had a Port-A-Cath placed 2 days ago. He has been complaining of melenic stools and abdominal pain. OBJECTIVE: Vital Signs: Temperature 98.7 degrees, pulse 99, respiratory rate 20, blood pressure 109/78, oxygen saturation 99 on room air. HEENT: Head normocephalic. No trauma. PERRLA. Neck: Supple. No JVD. No masses. Central trachea. Chest: Clear to auscultation. Decreased at the bases with some crepitus. Abdomen: Soft. I can feel multiple masses. He does have generalized tenderness to palpation. Positive bowel sounds. No signs of peritoneal irritation. Extremities: There is 3+ lower extremity edema. No clubbing. No cyanosis. Neurological: The patient is alert. He is oriented x3. No focal deficits. LABORATORY DATA: No lab work done today. ASSESSMENT AND PLAN: 1. Severe anemia, status post 2 packed red blood cells. Hemoglobin and hematocrit improved from 8.4, yesterday was 8. I will recheck the hemoglobin tomorrow. 2. Intractable abdominal pain. He is still complaining of belly pain. Will continue with the same management. He is getting pain medication. We did an ultrasound that showed a cyst. I will let Hematology/Oncology Department decide if this patient will need a new drainage. 3. Gastrointestinal stromal tumor, followed by Dr. Li. Continue with the same management. Like I mentioned before, ultrasound of the abdomen showed a large mass in the upper abdomen that is partially fluid filled, but mostly air. 4. Liver mass/cyst, status post drainage on 12/01/2018, where 3.7 liters of fluid were removed. 5. Hemorrhoids, status post hemorrhoidectomy. Aware. cc: Abran Baumann MD
[2018-12-20 07:36] LABS: HEMATOCRIT 23.8 % (42.0-52.0); HEMOGLOBIN 7.5 g/dL (14.0-18.0)
[2018-12-20 07:48] LABS: AGAP 7; BUN 9 mg/dL (8-22); CALCIUM 7.6 mg/dL (8.8-10.2); CHLORIDE 99 mmol/L (98-107); COSMO 264; CREATININE 0.6 mg/dL (0.7-1.2); ESTIMATED GFR > 60; GLUCOSE 74 mg/dL (70-104); POTASSIUM 3.6 mmol/L (3.5-5.1); SODIUM 133 mmol/L (136-145); TCO2 27 mmol/L (25-35)
[2018-12-20] MEDS ORDERED: LASIX IV SCH ×2 (13:30→18:23)
[2018-12-20] MEDS: MIRALAX PO SCH ×2 (13:39→20:28)
[2018-12-20] MEDS: DULCOLAX PR SCH (13:39)
--- NOTE | 2018-12-20 14:50 | Diag Imaging Result Doc PS360 ---
EXAM: US GB < RUQ (LIMITED) HISTORY: palliative drainage of air and fluid TECHNIQUE: Right sided ultrasound COMPARISON: 12/16/2018 FINDINGS: There is only a small amount of ascites in the right upper quadrant and in the lower quadrants. No well-defined or encapsulated fluid collection. IMPRESSION: No drainage performed. Electronically signed by Koko Cheema 12/20/2018 2:48 PM
--- NOTE | 2018-12-20 15:37 | PROGRESS NOTE ---
DATE: 12/20/2018 SUBJECTIVE: No acute events overnight. His Port-A-Cath has been placed 2 days ago. I discussed the case with Hematology/Oncology Department. They will add they will ask for 1 unit of blood today. They will ask also to the radiologist to drain the abdominal cyst in his liver that does that was drained before on 12/01/2018, and also I have placed this patient on Lasix which he has been getting for the past couple days to try to help for his pulmonary edema. OBJECTIVE: Vital Signs: Temperature 98.7 degrees, pulse 100, respiratory rate 20, blood pressure 117/78, oxygen saturation 97% on room air. HEENT: Head normocephalic. No trauma. PERRLA. Neck: Supple. No JVD. No masses. Central trachea. Chest: Clear to auscultation. Decreased breath sounds at the bases with some crepitus. Abdomen: Soft. Tenderness to palpation on her abdomen, mostly the upper area. I can feel multiple masses. Positive bowel sounds. No signs of peritoneal irritation. Extremities: 3+ lower extremity edema. No clubbing. No cyanosis. Neurological: The patient is alert. He is oriented x3. No focal deficits. LABORATORY: WBC 7.5, hemoglobin 2.3. Sodium 133, potassium 3.6, chloride 99, bicarbonate 27, BUN 9, creatinine 0.6 glucose 74, calcium 7.6. ASSESSMENT AND PLAN: 1. Severe anemia, status post 2 packed red blood cells. Hemoglobin and hematocrit improved but it is again trending down, Hematology/Oncology Department will transfuse this patient with a packed red blood cells. 2. Intractable abdominal pain. He seems to be feeling a little bit better. Continue with same medications. 3. Gastrointestinal stromal tumor, followed by Dr. Li-continue with same management. Like I mentioned before ultrasound of the abdomen showed a large mass in the upper abdomen that was partially fluid filled, but mostly air. We will attempt to drain these today so the patient can be more comfortable. 4. Liver mass/cyst, status post drainage on 12/01/2018 where 3.7 L of fluid were removed. 5. Constipation I have placed this patient on MiraLAX twice a day and go from there. 6. Hemorrhoids, status post hemorrhoidectomy. Aware. cc: Abran Baumann MD
[2018-12-20] MEDS ORDERED: NS 500 ML ONE (16:21)
[2018-12-20] MEDS ORDERED: LASIX IV ONE (18:27)
[2018-12-20] MEDS: DILAUDID IV PRN ×2 (20:30→23:55)
[2018-12-21] MEDS: NORCO-7.5 PO PRN ×3 (01:49→20:14)
[2018-12-21] MEDS: DILAUDID IV PRN ×6 (03:26→23:17)
[2018-12-21 06:57] LABS: BASO# 0.01 X1000 (0.0-0.2); BASO% 0.3 % (0.0-0.8); EOS# 0.01 X1000 (0.0-0.7); EOS% 0.3 % (0.0-10.0); HEMATOCRIT 29.5 % (42.0-52.0); IMM GRAN# 0.02 X1000 (0.0-0.04); IMM GRAN% 0.5 % (0.0-0.5); LYMPH# 0.34 X1000 (1.2-3.4); LYMPH% 8.7 % (20.5-51.1); MCH 30.4 PG (27-31); MCHC 30.5 g/dL (33-37); MCV 99.7 FL (81-99); MONO# 0.34 X1000 (0.11-0.59); MONO% 8.7 % (1.7-9.3); MPV 11.4 FL (7.4-10.4); NEUT# 3.19 X1000 (1.4-6.5); NEUT% 81.5 % (42.2-75.2); PLT 130 X1000 (130-400); RBC 2.96 XMIL (4.7-6.1); RDW 18.5 % (11.5-14.5); WBC 3.91 X1000 (4.8-10.8)
[2018-12-21 07:24] LABS: AGAP 9; BUN 9 mg/dL (8-22); CALCIUM 8.1 mg/dL (8.8-10.2); CHLORIDE 96 mmol/L (98-107); COSMO 264; CREATININE 0.7 mg/dL (0.7-1.2); ESTIMATED GFR > 60; GLUCOSE 80 mg/dL (70-104); MAGNESIUM 1.6 mg/dL (1.5-2.7); PHOSPHORUS 3.2 mg/dL (2.7-4.5); POTASSIUM 3.8 mmol/L (3.5-5.1); SODIUM 133 mmol/L (136-145); TCO2 28 mmol/L (25-35)
--- NOTE | 2018-12-21 09:06 | PROGRESS NOTE ---
DATE: 12/21/2018 SUBJECTIVE: Mr. Torre says he feels a little better. He had a lot of abdominal pressure and gas yesterday. He apparently had a bowel movement, feels better today, tolerating eating, or at least getting liquids down this morning. OBJECTIVE: Vital Signs: Temp 97.6 degrees, pulse 99, respirations 20, blood pressure 112/82. HEENT: Pupils are equal and round. Neck: No distended neck veins. Lungs: Clear anterolateral. Cardiovascular: Regular rhythm and rate without murmur or S3. Abdomen: Soft, nondistended. Urine output was 1800 mL. ASSESSMENT AND PLAN: 1. Severe anemia, status post 2 units of packed red blood cells. Hemoglobin and hematocrit improved. Continue to follow. Hematology/Oncology following. I think they plan on beginning some chemotherapy. 1. Intractable abdominal pain, which is improved. 2. Constipation. I think that is improved. 3. Gastrointestinal stromal tumor, followed by Dr. Li. He has a subclavian port on the right side. Ultrasound abdomen showed large mass in the upper abdomen that was partially filled, and they were considering draining it. 4. Liver mass and cyst, status post drainage on 12/01/2018, got off 3.7 liters of fluid. 5. Hemorrhoids. Aware. Status post hemorrhoidectomy. IMAGING AND LABORATORY DATA: Lab from today: White count 3910, hematocrit is 29, hemoglobin is 9, platelet count is 130,000. Sodium 133, potassium 3.8, chloride 96, BUN is 9, creatinine 0.7, calcium 8.1. Ultrasound done yesterday. There was no drainage performed. There was a small amount of ascites in the right upper quadrant and in the lower quadrants. No well-defined encapsulated fluid collection. REVIEW OF ORDERS: I do not see any change. He is getting Dulcolax 10 mg per rectum daily p.r.n., Lasix 40 mg IV a day, and polyethylene glycol 17 grams p.o. b.i.d. cc: Marco Antonio Fritz MD
[2018-12-21] MEDS: MIRALAX PO SCH ×2 (09:26→20:15)
[2018-12-21] MEDS: DULCOLAX PR SCH (09:26)
[2018-12-21] MEDS: LASIX IV SCH (09:27)
[2018-12-22] MEDS: DILAUDID IV PRN ×7 (02:26→22:30)
[2018-12-22] MEDS: DULCOLAX PR SCH (09:26)
[2018-12-22] MEDS: MIRALAX PO SCH ×3 (09:27→21:03)
[2018-12-22] MEDS: LASIX IV SCH (09:27)
--- NOTE | 2018-12-22 17:43 | PROGRESS NOTE ---
DATE: 12/22/2018 SUBJECTIVE: Mr. Torre still feels a little bit better. They are going to try and access his port and maybe begin his treatment under Dr. Li's direction. OBJECTIVE: Temperature 97.2 degrees, pulse 100, respirations 20, blood pressure 119/86. Pupils are equal and round. Lungs are clear in all lung celis.Cardiovascular: Regular rhythm and rate without murmur or S3. Abdomen is soft. Skin is warm and dry. ASSESSMENT AND PLAN: 1. Severe anemia, status post 2 units packed red blood cells. Hemoglobin and hematocrit appear to be good. Hematocrit is 29, hemoglobin is 9. 2. Intractable abdominal pain, which is improved. 3. Constipation, improved. 4. Gastrointestinal stromal tumor,. Followed by Dr. Li. He has a subclavian port and I think the plan is to begin some chemotherapy. 5. Liver mass and cyst drainage on 12/01/2018, got off 3.4 L fluid. 6. Hemorrhoids. Aware Dr. Li is going to pursue chemotherapy. On review of his lab from yesterday and review of his orders, I do not see any changes. cc: Marco Antonio Fritz MD
[2018-12-22] MEDS: NORCO-7.5 PO PRN (21:06)
[2018-12-23] MEDS: DILAUDID IV PRN ×7 (01:54→21:12)
[2018-12-23] MEDS: LASIX IV SCH (08:08)
[2018-12-23] MEDS: MIRALAX PO SCH ×2 (08:08→21:11)
[2018-12-23] MEDS: DULCOLAX PR SCH (08:08)
--- NOTE | 2018-12-23 09:18 | PROGRESS NOTE ---
DATE: 12/23/2018 SUBJECTIVE: Mr. Torre reports he feels a little better. He had a pretty good night last night. OBJECTIVE: He remains afebrile, temperature 99.1 degrees, pulse 102, respirations 16, blood pressure 108/72. Pupils are equal round. Lungs: Clear in all lung celis. Cardiovascular: Regular rhythm and rate without murmur or S3. ASSESSMENT AND PLAN: 1. Severe anemia. Received couple units of packed red blood cells. Hematocrit 29, hemoglobin is 9, as of the . 2. Intractable abdominal pain. This is finally improved. 3. Constipation, improved. 4. Gastrointestinal stromal tumor Dr. Li to begin chemotherapy. 5. Liver mass cyst drainage on 12/01/2018, drained off 3.4 L of fluid. 6. Hemorrhoids. Aware. Doing better. REVIEW OF ORDERS: Getting hydrocodone 7.5 mg q.6 hours p.r.n. He also has Dilaudid ordered for severe pain 1 mg IV every 3 hours. He is on MiraLAX 17 g p.o. b.i.d. and getting Lasix 40 mg IV daily. cc: Marco Antonio Fritz MD
--- NOTE | 2018-12-23 13:55 | Extremity Venous Study ---
PROCEDURE NAME: Venous U/S Left Arm - 12/21/2018 REQUESTING PHYSICIAN: Dr. Li. [employer] OFFICER: Dickey. INDICATIONS: Edema. EQUIPMENT: Nexio Vivid E9 ultrasound system with a 9 L-D transducer. FINDINGS: Images of the left upper extremity venous systems were obtained in both sagittal and transverse planes. Doppler was used to evaluate veins for spontaneity, phasicity, respiratory excursion, and digital augmentation. RESULTS: Normal venous compression, normal venous flow. No obvious superficial or deep venous thrombosis noted. INTERPRETATION: Essentially normal left upper extremity venous study. cc: MD Christian Caal MD
[2018-12-24] MEDS: DILAUDID IV PRN ×8 (00:22→22:30)
[2018-12-24] MEDS: MIRALAX PO SCH ×3 (09:41→20:12)
[2018-12-24] MEDS: DULCOLAX PR SCH (09:41)
[2018-12-24] MEDS: LASIX IV SCH (09:41)
--- NOTE | 2018-12-24 10:16 | PROGRESS NOTE ---
DATE: 12/24/2018 SUBJECTIVE: The patient is awake, in slight distress, having hiccups. Would like to be discharged home today. OBJECTIVE: Vital Signs: Temperature 98.7 degrees, pulse 117, respirations 19, blood pressure is 100/70, oxygen saturation is 100%. HEENT: Atraumatic, normocephalic. He is anicteric. Pupils are poorly reactive to light. No oral lesions. Neck: No lymphadenopathy or thyromegaly. Cardiovascular: S1, S2. Respiratory: Has evidence of good air entry bilaterally. Abdomen: Soft, nontender. No masses felt. Extremities: Has edema 1 to 2+ in both lower extremities. Central nervous system: No obvious focal deficit noted. LABORATORY DATA: Labs from 12/21/2018, WBC is 3.91, hematocrit is 29.4 with a platelet count of 130,000. Sodium is 133, potassium is 3.8, chloride is 96, bicarb is 28, BUN is 9, creatinine 0.7. ASSESSMENT AND PLAN: 1. Anemia. Status post transfusion with 3 units of packed red blood cells. Follow up on hemoglobin and hematocrit. Continue to transfuse PRBCs as needed. 2. Intractable abdominal pain. This seems to be better controlled. 3. Gastrointestinal stromal tumor. The patient has had chemotherapy as well as radiation treatment and has had recent port placement I believe for continued chemotherapy. 4. Liver mass/cyst. Status post drainage on 12/01/2018 where about 3.7 L of fluid was removed. 5. Constipation. Laxative/stool softener as needed. 6. Hemorrhoids. Status post hemorrhoidectomy. Aware. 7. Disposition. The patient can be discharged home today if cleared by the Hematology/Oncology team. cc: Vinay Momin MD
[2018-12-25] MEDS: DILAUDID IV PRN ×3 (01:39→07:27)
[2018-12-25 08:44] VITALS: BP 100/75
[2018-12-25] MEDS ORDERED: LASIX PO SCH (09:00)
[2018-12-25] MEDS: NORCO-7.5 PO PRN (09:13)
[2018-12-25] MEDS: MIRALAX PO SCH (09:14)
[2018-12-25] MEDS: DULCOLAX PR SCH (09:14)
--- NOTE | 2018-12-25 14:27 | DISCHARGE SUMMARY ---
ADMISSION DATE: 12/15/2018 DISCHARGE DATE: 12/25/2018 ADDENDUM: Patient seen and examined by myself. Full note dictated and discussed with nurse practitioner. The patient this morning is quite irritated that he is in the hospital. He seems somewhat angry and quite unwilling to answer questions. When asked how he is feeling this morning, he will only reply with I want to go home. I did discuss with Mr. Torre that although he has every right to be irritated, barking at myself or his nurse, both of which have only seen him for the 1st time this morning is not productive. He eventually does note that his swelling in his lower extremities although still 2+ is improved. He denies any shortness of breath or chest pain. He has been transfused while in the hospital. His platelets are improved and therefore we are going to discharge him home on Lasix. He can follow up outpatient with his primary care or Dr. Li. TIME SPENT: Greater than 30 minutes was spent in total care. cc: Aldo Kendrick MD
--- NOTE | 2018-12-25 14:29 | DISCHARGE SUMMARY ---
ADMISSION DATE: 12/15/2018 DISCHARGE DATE: 12/25/2018 PRIMARY CARE PHYSICIAN: Listed as Dr. Holly. ADMISSION DIAGNOSES: 1. Intractable pain in abdomen. 2. Rectal bleeding, possibly hemorrhoidal. 3. GI stomal tumor. 4. Liver mass cyst status post drainage on 12/01/2018 where they removed 3.7 L of serosanguineous fluid. 5. Hemorrhoids status post hemorrhoidectomy. DISCHARGE DIAGNOSES: 1. Anemia status post transfusion with 3 units of packed red blood cells. 2. Intractable abdominal pain improved. 3. Gastrointestinal stomal tumor. 4. Liver mass cyst status post drainage on 12/01/2018 with 3.7 L of fluid removed. 5. Hemorrhoids status post hemorrhoidectomy. SUMMARY OF FINDINGS: This is a 63-year-old male who recently on 11/30/2018 underwent an ultrasound-guided cyst aspiration and drainage where they were able to drain 3.7 L of grossly serosanguineous fluid, presented back to Dr. Li's office on the day of arrival without an appointment complaining of intractable pain as well as rectal bleeding. They checked his hemoglobin and hematocrit and it was 5 and 19. He was given IV Dilaudid in the office so we admitted him as a direct admit, transfused 2 units of packed red blood cells, consulted GI as well as Hematology. On 12/17/2018 had insertion of a Port-A-Cath by General Surgery. Chest x-ray showed Port-A-Cath on the right with tip in the right atrium. We did an abdomen ultrasound on 12/20/2018 that showed no drainage performed. We did a left arm venous ultrasound that showed an essentially normal left upper extremity venous study. The patient's hemoglobin and hematocrit came up on 12/21/2018 to 9 and 29.5 and it is now felt that he can safely be discharged home with home health services. DISCHARGE MEDICATIONS: Include Duragesic 50 mcg transdermal patch every 3 days, Lasix 20 mg p.o. b.i.d., Seymour 10 one p.o. q.4-6 hours p.r.n., omeprazole 40 mg p.o. daily, Micro-K 10 mEq p.o. b.i.d. and Sutent 50 mg p.o. daily. FOLLOWUP: He will need to follow with his oncologist as scheduled. Follow up with GI and surgery as needed and again he will have home health services. All discharge instructions have been reviewed with the patient. He verbalized understanding. TIME SPENT: 35 minutes. Dictated by ROWAN Fabian for Aldo Kendrick MD cc: ROWAN Fabian MD
== END 2018-12-25 11:16 | disposition home health service (06) | DRG 982 ==
LOC: SUATTDRO 15:01 → DIRADM 15:01 → 3N 16:20
PROVIDERS: ATTEND Family Medicine

== ENCOUNTER 2019-01-19 09:19 | Inpatient (IN) ==
[2019-01-19] MEDS ORDERED: D50W SYRINGE IV ONE ×2 (09:41→13:51)
[2019-01-19] MEDS ORDERED: NS 1,000 ML IV ONE (09:44)
--- NOTE | 2019-01-19 10:07 | Diag Imaging Result Doc PS360 ---
EXAM: CHEST-1 VIEW HISTORY: ams TECHNIQUE: Single view COMPARISON: 01/18/2019 FINDINGS: Poor inspiratory effort. Mild cardiomegaly remains. No pulmonary edema. No change in the right-sided portacatheter. No pneumothorax. No consolidation. IMPRESSION: Stable exam Electronically signed by Koko Cheema 01/19/2019 10:04 AM
--- NOTE | 2019-01-19 10:42 | Diag Imaging Result Doc PS360 ---
CT HEAD W/O CONTRAST - 01/19/2019 INDICATION: AMS COMPARISON: 05/22/2016 FINDINGS: There is a stable tiny nodule in the extra-axial space at the superior left cerebral hemisphere. This is relatively hyperdense and round. This is probably a tiny meningioma. This measures 8.2 mm. Otherwise, no intracranial mass or hemorrhage. The skull is intact. The sinuses are all clear. IMPRESSION: Probable tiny meningioma at the superior left cerebral hemisphere. No acute disease or change from prior. This exam was performed using automated exposure control, adjustment of mA or kV according to patient size, and/or use of iterative reconstruction technique Electronically signed by Christiano Abdi 01/19/2019 10:40 AM
[2019-01-19 10:47] LABS: HEMATOCRIT 27.2 % (42.0-52.0); HEMOGLOBIN 8.2 g/dL (14.0-18.0); IMM GRAN# 0.05 X1000 (0.0-0.04); IMM GRAN% 0.4 % (0.0-0.5); LYMPH# 0.42 X1000 (1.2-3.4); LYMPH% 3.7 % (20.5-51.1); MCH 30.3 PG (27-31); MCHC 30.1 g/dL (33-37); MCV 100.4 FL (81-99); MONO% 5.3 % (1.7-9.3); MPV 11.3 FL (7.4-10.4); NEUT# 10.29 X1000 (1.4-6.5); NEUT% 90.6 % (42.2-75.2); PLT 147 X1000 (130-400); RBC 2.71 XMIL (4.7-6.1); RDW 20.4 % (11.5-14.5); WBC 11.36 X1000 (4.8-10.8)
[2019-01-19 10:50] LABS: INR 1.37; PROTIME 17.1 Seconds (11.0-16.0)
[2019-01-19 10:51] LABS: ALLEN TEST YES; BE 6.9 mmoll (-3.0-3.0); BLOOD TYPE ARTERIAL; HCO3-(ACT) 30.3 mmoll (20.0-26.0); O2HB 97.7 % (95.0-99.0); PCO2(98.6) 33 mmHg (35-45); PO2(98.6) 141 mmHg (60-100); SAMPLE BLOOD; SAO2 98.9 % (95.0-100.0); THB 8.5 g/dL (11.5-17.4)
[2019-01-19 10:53] LABS: MODALITY CANNULA; pH(98.6) 7.56 (7.35-7.45)
[2019-01-19 10:53] LABS: ESTIMATED GFR > 60
[2019-01-19 11:07] LABS: AGAP 14; ALB/GLOB RATIO 0.4; ALBUMIN 1.5 g/dL (3.5-5.0); ALKALINE PHOSPHATASE 266 U/L (32-122); BUN 25 mg/dL (8-22); CALCIUM 7.7 mg/dL (8.8-10.2); CHLORIDE 106 mmol/L (98-107); CK PROFILE 30 U/L (24-204); COSMO 295; CREATININE 0.5 mg/dL (0.7-1.2); GLUCOSE 69 mg/dL (70-104); GOT 14 U/L (10-34); GPT 10 U/L (10-44); POTASSIUM 3.6 mmol/L (3.5-5.1); SODIUM 147 mmol/L (136-145); TCO2 27 mmol/L (25-35); TOTAL BILIRUBIN 0.74 mg/dL (0.20-1.00); TOTAL PROTEIN 5.1 g/dL (6.3-8.3)
[2019-01-19 11:12] LABS: URINE SOURCE CATH
[2019-01-19 11:23] LABS: BILIRUBIN URINE NEGATIVE (NEGATIVE); BLOOD URINE NEGATIVE (NEGATIVE); COLOR YELLOW; GLUCOSE URINE TRACE mg/dL (NEGATIVE); KETONE URINE NEGATIVE (NEGATIVE); LEUKOCYTES URINE NEGATIVE (NEGATIVE); NITRITE URINE NEGATIVE (NEGATIVE); PH URINE 5.5; PROTEIN URINE TRACE mg/dL (NEGATIVE); TURBIDITY URINE CLEAR (CLEAR); UR EPITHELIAL CELLS <10 /HPF (<10); URINE BACTERIA NEGATIVE /HPF; URINE RBC <10 /HPF (<10); URINE WBC <10 /HPF (<10); UROBILINOGEN URINE NORMAL (NORMAL)
[2019-01-19 11:31] LABS: BANDS 10 % (0-1); HYPOCHROM 1+; LYMPHS 3 % (21-51); MONO 2 % (1-9); NRBC 1 % (0-0); SEGS 85 % (42-75)
[2019-01-19] MEDS ORDERED: LASIX IV ONE (11:45)
--- NOTE | 2019-01-19 12:07 | PROVIDER DOCUMENTATION ---
This chart was entered by Kaylee Torre Scribe, acting as scribe for Bayron Herrera MD. HPI-General Adult - General Chief Complaint: Low Blood Sugar Stated Complaint: FALL/AMS/HYPOGLYCEMIA Time Seen by Provider: 01/19/19 09:36 Source: patient, family (), EMS Allergies/Adverse Reactions: Patient Allergies Allergy/AdvReac Type Severity Reaction Status Date / Time potassium phosphate Allergy Unknown Verified 12/15/18 13:23 [From K-Phos Original] Home Medications: Home Medication List Medication Instructions Recorded Confirmed Last Taken Type Fentanyl [Duragesic] 50 mcg TD Q3D #3 patch.td72 09/20/18 12/15/18 01/10/19 Rx Hydrocodone/Acetaminophen 1 tab PO Q4-6H PRN PRN 11/30/18 12/15/18 01/11/19 History [Hydrocodone-Acetamin 10-325 mg] Omeprazole 40 mg PO DAILY 12/15/18 12/17/18 01/11/19 History Pazopanib HCl [Votrient] 800 tab PO [id number] 01/12/19 01/12/19 01/11/19 History - History of Present Illness -Gen Adult Nature of Presenting Problems: 63 yobm presents to the ed via ems with . pt was seen last night for ams and sent home after tx. 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 sts pt woke this am confused again and when ems aos pt had fsbg 28 and was given oral glucose by medic kenneth. pt has no hx of diabetes. pt on exam is cachetic from the waist up and has pitting 4+ edema from waist down including scrotum. pt on exam is lethargic but can be woken to voice and answers all questions correctly at this time. pt is ill appearing sts she foes not have the paperwork with her but when dr herrera spoke with them at length at [facility] it was stated by pt is a DNR Location of Pain/Injury: reports: none Pain Radiation: reports: no radiation Quality of Pain: reports: none Severity: reports: severe Onset/Duration: reports: last night (pt had similar episode last night and was seen in ed and back this morning with ams (per ) and hypoglycemia) Timing: reports: still present, improving, intermittent Context/Activities at Onset: reports: light activity Modifying Factors: improves with: other (oral glucose) Associated Symptoms: reports: other (ams and hypoglycemia). denies: back/neck pain, chest pain, fever/chills, nausea, shortness of breath, vomiting, weakness Similar Symptoms Previously?: Yes (last night) Recently seen or treated by another doctor?: Yes (seen in ed) - Diabetes Related Context Context: reports: low blood sugar (28), change in mental status Review of Systems - Adult - REVIEW OF SYSTEMS - ADULT Constitutional: denies: chills, fever Eyes: reports: no symptoms reported Ears, Nose, Mouth & Throat: reports: no symptoms reported Cardiovascular: reports: heart murmur. denies: chest pain, palpitations Respiratory: denies: shortness of breath, wheezing Gastrointestinal: denies: abdominal pain, diarrhea, nausea, vomiting Genitourinary: reports: no symptoms reported Musculoskeletal: denies: back pain, neck pain Integumentary: reports: no symptoms reported Neurological: reports: see HPI, other (ams). denies: dizziness/vertigo, headache/migraines Psychiatric: reports: no symptoms reported Endocrine: reports: no symptoms reported Hematologic/Lymphatic: reports: no symptoms reported Allergic/Immunologic: reports: no symptoms reported All Other Systems: Reviewed and Negative Past History - Adult - PAST MEDICAL HISTORY-ADULT Review of Records: reports: Old Records Reviewed, Nursing Assessment Review, Medications Reviewed, Social history reviewed & non-contributory. Major Childhood Illnesses: reports: denies history Cardiovascular: reports: HTN Respiratory: reports: denies history Gastrointestinal: reports: cancer (stomach cancer mets to liver), hemorrhoids Genitourinary: reports: denies history Musculoskeletal: reports: denies history Hand Dominance: Right Handed Neurological: reports: denies history Psychiatric: reports: denies history Endocrine/Immune: reports: immunosuppression. denies: Diabetes Other Conditions: reports: denies history - PRIOR SURGERIES/PROCEDURES Surgical/Procedure History: reports: reviewed, not pertinent - IMMUNIZATION STATUS Childhood Immunizations: See Nurse Assessment Flu Vaccine: See Nurse Assessment - FAMILY HISTORY Family History: reviewed, not pertinent - SOCIAL HISTORY Smoking: denies Substance Use: denies Living Situation: family () Physical Exam-General - PHYSICAL EXAM-ADULT Initial Vital Signs Reviewed: Yes - CONSTITUTIONAL General Appearance: mild distress, cachetic (wasting from the waist up/waist down pt has 4+ edema including scrotum), lethargic (but once pt wakes he is a/ox3). negative: appears well (ill appearaing) - EYES Eyes: PERRL/EOMI - HEAD, EARS, NOSE, MOUTH & THROAT HENMT: moist mucous membranes, other (pt is drooling on exam) - NECK Neck: full range of motion, normal inspection - RESPIRATORY Respiratory: chest non-tender, lungs clear, normal breath sounds - CARDIOVASCULAR Cardiovascular: normal peripheral pulses, tachycardia (108), systolic murmur (1/6) - CHEST (BREASTS) Chest/Breast: other (port noted to rt upper chest wall) - GASTROINTESTINAL (ABDOMEN) Abdominal Exam: normal bowel sounds, non tender, soft - GENITOURINARY Male Genitalia: scrotal swelling (edema noted from waist down) Rectal Exam: deferred Hemoccult Exam: deferred - LYMPHATIC Lymphatic: no adenopathy - MUSCULOSKELETAL Back Exam: no CVA tenderness, no vertebral tenderness Extremity: swelling (4+) - SKIN Integumentary: warm/dry - NEUROLOGIC Neurologic: grossly normal - PSYCHIATRIC Psych/Mental Status: oriented x 3 Progress - PLAN OF CARE/RESULTS Progress/Plan/Lab Results: Vital Signs - 8 hr 01/19/19 09:40 01/19/19 10:04 Temperature 97.7 F 97.7 F Pulse Rate 108 H 103 H Respiratory Rate 12 20 Blood Pressure 100/74 100/74 O2 Sat by Pulse Oximetry 95 97 Laboratory Results - last 24 hr 01/19/19 01/19/19 01/19/19 09:23 09:55 09:55 WBC 11.36 H RBC 2.71 L Hgb 8.2 L Hct 27.2 L MCV 100.4 H MCH 30.3 MCHC 30.1 L RDW Std Deviation 20.4 H Plt Count 147 MPV 11.3 H Immature Gran % (Auto) 0.4 Neut % (Auto) 90.6 H Lymph % (Auto) 3.7 L Charlotte % (Auto) 5.3 Eos % (Auto) 0.0 Baso % (Auto) 0.0 Immature Gran # (Auto) 0.05 H Neut # (Auto) 10.29 H Lymph # (Auto) 0.42 L Charlotte # (Auto) 0.60 H Eos # (Auto) 0.00 Baso # (Auto) 0.00 PT INR PTT (Actin FS) Specimen Type Sample Site pH pCO2 pO2 HCO3 Base Excess Oxyhemoglobin ABG O2 Sat (Calculated) ABG O2 Saturation ABG Carboxyhemoglobin ABG Methemoglobin Marco Antonio Test A-a O2 Difference Total Hemoglobin Lactate Liter Flow Blood Gas Modality FiO2 % Sodium 147 H Potassium 3.6 Chloride 106 Carbon Dioxide 27 Anion Gap 14 BUN 25 H Creatinine 0.5 L Estimated GFR/1.73 m2 > 60 BUN/Creatinine Ratio 50 Glucose 69 L POC Glucose 43 L Calculated Osmolality 295 Calcium 7.7 L Magnesium Total Bilirubin 0.74 AST 14 ALT 10 Alkaline Phosphatase 266 H Creatine Kinase 30 Troponin T [id number]-Muwtgnkpvfe Pept Total Protein 5.1 L Albumin 1.5 L Globulin 3.6 Albumin/Globulin Ratio 0.4 Plasma Lactate Urine Source 01/19/19 01/19/19 01/19/19 09:55 09:55 09:55 WBC RBC Hgb Hct MCV MCH MCHC RDW Std Deviation Plt Count MPV Immature Gran % (Auto) Neut % (Auto) Lymph % (Auto) Charlotte % (Auto) Eos % (Auto) Baso % (Auto) Immature Gran # (Auto) Neut # (Auto) Lymph # (Auto) Charlotte # (Auto) Eos # (Auto) Baso # (Auto) PT 17.1 H INR 1.37 PTT (Actin FS) 45.0 H Specimen Type Sample Site pH pCO2 pO2 HCO3 Base Excess Oxyhemoglobin ABG O2 Sat (Calculated) ABG O2 Saturation ABG Carboxyhemoglobin ABG Methemoglobin Marco Antonio Test A-a O2 Difference Total Hemoglobin Lactate Liter Flow Blood Gas Modality FiO2 % Sodium Potassium Chloride Carbon Dioxide Anion Gap BUN Creatinine Estimated GFR/1.73 m2 BUN/Creatinine Ratio Glucose POC Glucose Calculated Osmolality Calcium Magnesium Total Bilirubin AST ALT Alkaline Phosphatase Creatine Kinase Troponin T 0.020 Cda-X-Lmxcxdrrhbb Pept Total Protein Albumin Globulin Albumin/Globulin Ratio Plasma Lactate 2.4 H Urine Source 01/19/19 01/19/19 01/19/19 09:55 09:55 10:18 WBC RBC Hgb Hct MCV MCH MCHC RDW Std Deviation Plt Count MPV Immature Gran % (Auto) Neut % (Auto) Lymph % (Auto) Charlotte % (Auto) Eos % (Auto) Baso % (Auto) Immature Gran # (Auto) Neut # (Auto) Lymph # (Auto) Charlotte # (Auto) Eos # (Auto) Baso # (Auto) PT INR PTT (Actin FS) Specimen Type Sample Site pH pCO2 pO2 HCO3 Base Excess Oxyhemoglobin ABG O2 Sat (Calculated) ABG O2 Saturation ABG Carboxyhemoglobin ABG Methemoglobin Marco Antonio Test A-a O2 Difference Total Hemoglobin Lactate Liter Flow Blood Gas Modality FiO2 % Sodium Potassium Chloride Carbon Dioxide Anion Gap BUN Creatinine Estimated GFR/1.73 m2 BUN/Creatinine Ratio Glucose POC Glucose 54 L Calculated Osmolality Calcium Magnesium 1.7 Total Bilirubin AST ALT Alkaline Phosphatase Creatine Kinase Troponin T Hmn-V-Xdjafyboszu Pept 6960 H Total Protein Albumin Globulin Albumin/Globulin Ratio Plasma Lactate Urine Source 01/19/19 01/19/19 10:42 11:00 WBC RBC Hgb Hct MCV MCH MCHC RDW Std Deviation Plt Count MPV Immature Gran % (Auto) Neut % (Auto) Lymph % (Auto) Charlotte % (Auto) Eos % (Auto) Baso % (Auto) Immature Gran # (Auto) Neut # (Auto) Lymph # (Auto) Charlotte # (Auto) Eos # (Auto) Baso # (Auto) PT INR PTT (Actin FS) Specimen Type ARTERIAL Sample Site R RADIAL pH 7.56 H* pCO2 33 L pO2 141 H HCO3 30.3 H Base Excess 6.9 H Oxyhemoglobin 97.7 ABG O2 Sat (Calculated) 12.0 L ABG O2 Saturation 98.9 ABG Carboxyhemoglobin 1.20 ABG Methemoglobin 0.0 Marco Antonio Test YES A-a O2 Difference 46.0 Total Hemoglobin 8.5 L Lactate 2.40 H Liter Flow 3.0 Blood Gas Modality CANNULA FiO2 % 32.0 Sodium Potassium Chloride Carbon Dioxide Anion Gap BUN Creatinine Estimated GFR/1.73 m2 BUN/Creatinine Ratio Glucose POC Glucose Calculated Osmolality Calcium Magnesium Total Bilirubin AST ALT Alkaline Phosphatase Creatine Kinase Troponin T Pqs-O-Sqroxjrkajv Pept Total Protein Albumin Globulin Albumin/Globulin Ratio Plasma Lactate Urine Source CATH Orders Category Date Time Status Cardiac Monitoring DIRECTED Care 01/19/19 09:41 Active Nair Cath Insertion ORDERED Care 01/19/19 09:42 Active IV Insertion ORDERED Care 01/19/19 09:41 Active May use PICC Line/Port a Cath ORDERED Care 01/19/19 10:15 Active Resuscitation Status Routine Care 01/19/19 10:16 Ordered CHEST-1 VIEW [RAD] Stat Exams 01/19/19 09:[address] HEAD W/O CONTRAST [CT] Stat Exams 01/19/19 09:43 Completed ABG [RESP] Routine Lab 01/19/19 10:42 Completed AMMONIA [CHEM] Stat Lab 01/19/19 09:42 Uncollected BLOOD CULTURE [BLDCUL] Stat Lab 01/19/19 09:41 Uncollected CBC WITH DIFF [HEME] Stat Lab 01/19/19 09:55 Results CK PROFILE [SP CHEM] Stat Lab 01/19/19 09:55 Completed COMPREHENSIVE METABOLIC PANEL [CHEM] Stat Lab 01/19/19 09:55 Completed LACTATE, PLASMA [CHEM] Lab 01/19/19 12:45 Uncollected LACTATE, PLASMA [CHEM] Lab 01/19/19 15:45 Uncollected LACTATE, PLASMA [CHEM] Q3H Lab 01/19/19 09:55 Completed MAGNESIUM [CHEM] Stat Lab 01/19/19 09:55 Completed PRO B-NATRIURETIC PEPTIDE Stat Lab 01/19/19 09:55 Completed PROTIME WITH INR [COAG] Stat Lab 01/19/19 09:55 Completed PTT [COAG] Stat Lab 01/19/19 09:55 Completed TROPONIN T Stat Lab 01/19/19 09:55 Completed URINALYSIS W/POSS RFLX CULT [URINALYSIS] Stat Lab 01/19/19 11:00 Results 0.9% Sodium Chloride Inj [Ns] 1,000 ml Med 01/19/19 09:44 Discontinued IV 999 mls/hr Dextrose 50% Syringe [D50w Syringe] Med 01/19/19 09:41 Discontinued 50 ml IV NOW ONE Oxygen Device Stat Oth 01/19/19 09:41 Active Result Diagrams: 01/19/19 09:55 01/19/19 09:55 - REASSESSMENT Reassessment #1 Time Reassessed: 11:38 (dr herrera spoke with pt and at length about poc and sts pt is a DNR but paperwork is at home) Status: improving Reassessment #2 Time Reassessed: 12:05 Status: unchanged (minimal improvement with D50) - XRAY 1 XRAY: Bilateral XRAY Study: Chest Impression: See EMR Report (EXAM: CHEST-1 VIEW HISTORY: ams TECHNIQUE: Single view COMPARISON: 01/18/2019 FINDINGS: Poor inspiratory effort. Mild cardiomegaly remains. No pulmonary edema. No change in the right-sided po rtacatheter. No pneumothorax. No consolidation. IMPRESSION: Stable exam Electronically signed by Koko Cheema 01/19/2019 10:04 AM 01/19/19 1004 Interpreting Physician: Koko Cheema MD Dictated Date/Time: 01/19/19 1004 cc: Bayron Herrera MD; Rogelio Valdivia MD) - CT/MRI 1 CT Study: Head Impression: See EMR Report (CT HEAD W/O CONTRAST - 01/19/2019 INDICATION: AMS COMPARISON: 05/22/2016 FINDINGS: There is a stable tiny nodule in the extra- axial space at the superior left cerebral hemisphere. This is relatively hyperdense and round. This is probably a tiny meningioma. This measures 8.2 mm. Otherwise, no intracranial mass or hemorrhage. The skull is intact. The sinuses are all clear. IMPRESSION: Probable tiny meningioma at the superior left cerebral hemisphere. No acute disease or change from prior. This exam was performed using automated exposure control, adjustment of mA or kV according to patient size, and/or use of iterative reconstruction technique Electronically signed by Christiano Abdi 01/19/2019 10:40 AM 01/19/19 1040 Interpreting Physician: Christiano Abdi MD Dictated Date/Time: 01/19/19 1038 cc: Bayron Herrera MD; Rogelio Valdivia MD) - CONSULTS/PCP/HOSPITALIST Notification #1 *Consult/PCP/Hospitalist*: hospitalist Time Discussed: 12:03 (spoke with roderick) Reason/Comments: admit to [facility] Consult Disposition: Admit Departure - Departure Date of Disposition Decision: 01/19/19 Time of Disposition Decision: 12:06 DIAGNOSIS: Multiple episodes of hypoglycemia, New onset of congestive heart failure, Acute hypernatremia Altered mental status, unspecified Qualifiers: Altered mental status type: somnolence Qualified Code(s): R40.0 - Somnolence Anemia Qualifiers: Anemia type: iron deficiency Iron deficiency anemia type: chronic blood loss Qualified Code(s): D50.0 - Iron deficiency anemia secondary to blood loss (chronic) Disposition: ADMITTED INPATIENT 09 Certified Medical Emergency: Emergent Condition: Stable Referrals and Follow-Ups: Rogelio Valdivia MD [Primary Care Provider] - - Critical Care Note This patient required my direct & personal management of CC.: Yes Total Time (mins): 35 (DNR discussions, review of mult ED visits/admits, kori barger for AMS) Critical Care Statement: This patient required my direct personal management to treat or rule out processes, the absence of which, could potentiallly result in sudden, clinically significant life or limb threatening deterioration. Attestation - Physician/ JESSICA Attestation Patient care was provided by Advanced Practice Provider:: No The physician spent face to face time with patient:: Yes Advanced Practice Provider documentation review:: Supervising physician onsite and consulted in the evaluation and care of this patient. The physician did have a face to face encounter with the patient. This chart was documented by the indicated scribe, (Kaylee Torre Scribe) and accurately reflects the services I performed and decisions made by me, Bayron Herrera MD, as attested by the provider's signature.
[2019-01-19] MEDS ORDERED: D10W 1,000 ML IV SCH ×3 (12:45→13:51)
[2019-01-19] MEDS ORDERED: TYLENOL PO PRN (13:51)
[2019-01-19] MEDS ORDERED: ZOFRAN IV PRN (13:51)
[2019-01-19] MEDS ORDERED: ALBUMIN 25% IV ONE (13:51)
--- NOTE | 2019-01-19 14:00 | HISTORY AND PHYSICAL ---
HISTORY OF PRESENT ILLNESS: Mr. Torre is a 63-year-old who came in with low blood sugars. He feels he is hurting all over and from his report, feels very weak. Girard a little bit of shortness of breath, although he does not feel that now at the time of the examination. This is a 63-year- old, -Citizen Of [place] male who came in with a past medical history of gastrointestinal stromal tumor. He is still getting chemotherapy. He has finished radiation therapy with Dr. Mcdowell. This was back at the end of October of last year. He has been admitted to our service, last time on 12/15/2018, with intractable pain. He underwent ultrasound-guided cyst aspiration and able to drain 3.7 L of grossly serosanguineous fluid, followed by Dr. Li. He is not on any oral hypoglycemics. No history of diabetes mellitus but apparently gastrointestinal stromal tumor with metastasis to the liver, still getting chemotherapy. Had a hemorrhoidectomy a couple weeks ago per Dr. Rosas. PAST SURGICAL HISTORY: Hemorrhoidectomy. ALLERGIES: No known drug allergies. REVIEW OF SYSTEMS: I think he is feeling weaker and steadily losing some weight. HEENT: He does not report any change in visual or hearing acuity. Neck: No neck pain. No adenopathy. Respiratory: He has had a little more dyspnea. No fever or chills reported. GI and : He did not report any blood in the stool. No gross hematuria or dysuria. Musculoskeletal/Neurologic: No focal complaints. Endocrinologic/Hematologic: No significant history. PHYSICAL EXAMINATION: VITAL SIGNS: Temperature 97.7 degrees, pulse 103, respirations 20, blood pressure 100/74. HEENT: Pupils are equal and round. RESPIRATORY: Lungs are clear in all lung celis. CARDIOVASCULAR EXAMINATION: Regular rhythm and rate without murmur or S3. ABDOMEN: Soft, nondistended. EXTREMITIES: He has 3+ pitting edema from the ankles to mid fontanez, symmetrical. I do not see any other sign of skin rashes. No oral or nasal mucosal lesions. Neck was supple. No adenopathy. CVP less than 6 cm. LABORATORY DATA: White count 11,360, hematocrit 27, hemoglobin 8.2, platelet count 147,000. Sodium 147, potassium 3.6, chloride 106, BUN 25, creatinine 0.5, blood sugar 69. AST 14, ALT 10, alkaline phosphatase 266. ProBNP 6960. Prothrombin time is 17, PTT is 45. Urinalysis unremarkable. Blood gases, pH is 7.56, pCO2 is 33, PO2 is 141. This is on FiO2 of 32%. O2 saturation is 98%. Chest x-ray: Poor inspiratory effort. Mild cardiomegaly remains. No pulmonary edema. No change in the right-sided Port-A-Cath. No pneumothorax. No consolidation. CT of the head: Probable tiny meningioma in the superior left cerebral hemisphere. No acute disease. No change from prior CT. ASSESSMENT AND PLAN: 1. Hypoglycemia in the face of a gastrointestinal tumor with I believe metastasis to the liver, is my understanding. Blood sugar was 69. We will give some D10, run it at about 45 mL an hour. I am concerned if this is from liver dysfunction or failure. It is a poor sign. Going to try and encourage oral intake. 2. He has pedal edema but does not seem to have pulmonary venous hypertension. His renal function looks good. Creatinine is 0.5, BUN is 25. His albumin was 1.5, total protein is 5.1, so I think a lot of the swelling is his low albumin, his protein calorie malnutrition, so trying to improve his nutrition. 3. Gastrointestinal stromal tumor, followed by Dr. Li. We will consult Dr. Li to help us make decisions. 4. Chronic pain. No specific area. He is on hydrocodone. We will continue that. He is also taking a Duragesic patch so we will continue his pain management. 5. Note that his hematocrit is 27, hemoglobin 8.2, so anemia of chronic disease. MCV was 100.4. We will check T4, TSH, B12, folate. We will check some iron studies, serum iron, ferritin, and total iron binding capacity. We will check a reticulocyte count. We will follow his electrolytes, make sure we get a magnesium, and we will check a phosphorus and calcium level as well. cc: Marco Antonio [facility] MD
[2019-01-20] MEDS ORDERED: NS 1,000 ML IV ONE (00:36)
[2019-01-20 02:41] LABS: ALLEN TEST YES; BE -14.1 mmoll (-3.0-3.0); BLOOD TYPE ARTERIAL; O2(CT) 5.5 mL/dL (15.0-23.0); O2HB 96.4 % (95.0-99.0); PO2(98.6) 173 mmHg (60-100); SAMPLE BLOOD; SAO2 96.7 % (95.0-100.0); THB 3.7 g/dL (11.5-17.4)
[2019-01-20 02:42] LABS: MODALITY CANNULA
[2019-01-20 02:45] LABS: PCO2(98.6) 16 mmHg (35-45)
[2019-01-20] MEDS ORDERED: D50W SYRINGE IV ONE (03:15)
[2019-01-20 03:38] LABS: AGAP 30; ALB/GLOB RATIO 0.5; ALBUMIN 1.3 g/dL (3.5-5.0); ALKALINE PHOSPHATASE 221 U/L (32-122); BUN 28 mg/dL (8-22); CALCIUM 7.2 mg/dL (8.8-10.2); CHLORIDE 103 mmol/L (98-107); COSMO 289; ESTIMATED GFR > 60; GLUCOSE 45 mg/dL (70-104); GOT 22 U/L (10-34); GPT 9 U/L (10-44); POTASSIUM 4.4 mmol/L (3.5-5.1); SODIUM 144 mmol/L (136-145); TCO2 11 mmol/L (25-35); TOTAL BILIRUBIN 0.58 mg/dL (0.20-1.00); TOTAL PROTEIN 3.9 g/dL (6.3-8.3)
[2019-01-20 04:19] VITALS: BP 61/43
--- NOTE | 2019-01-20 07:04 | Diag Imaging Result Doc PS360 ---
EXAM: CHEST-PORTABLE 01/20/2019 HISTORY: tachypnea,AMS TECHNIQUE: AP portable at 0212 COMMENT: There is minimal platelike atelectasis over the lung bases. This is improved somewhat since 01/19/2019. The inspiration is slightly less optimal. Otherwise are has been no significant change. IMPRESSION: Improved basilar atelectasis. Electronically signed by Da Castro 01/20/2019 7:02 AM
--- NOTE | 2019-01-20 09:04 | DISCHARGE SUMMARY ---
ADMISSION DATE: 01/19/2019 DISCHARGE DATE: 01/20/2019 Mr. Torre is a 63-year-old who presented with very low blood sugars. He had a gastrointestinal stromal tumor, which they had been treating since October of last year. He had notable liver metastasis. He presented with hypoglycemia, no history of diabetes, and elevated lactate level, really feeling like he was approaching fulminant liver failure. Difficult to get his blood sugars up. He also had peripheral edema. I believe albumin was 1.3, and he continued to decline. He at on 01/20/2019 at 7:45. Family was aware. cc: Marco Antonio [facility] MD
== END 2019-01-20 03:45 | disposition expired | DRG 442 ==
LOC: SUPCPDRO → ED 09:19 → EDIPHOLD 13:53 → ICU 21:57
PROVIDERS: ATTEND Emergency Medicine